=== PATIENT | female | born 2000 | race Two or more races ===

== ENCOUNTER 2024-05-13 23:09 | Emergency (ER) | payer OTHER ==
[~2024-05-13] VITALS: Ht 162.6 cm; Wt 61.0 kg
[~2024-05-13 23:09] MED LIST: AMOX500C2 PO
--- NOTE | 2024-05-14 00:07 | DVH ---
CHEST RADIOGRAPH Indication: cough Technique: Frontal and lateral view of the chest was obtained Comparison: None FINDINGS: Lines and Tubes: None Lungs: Probable infiltrate noted posteriorly in the right lower lobe. Pleura: No effusion. No pneumothorax. Cardiomediastinal contours: Unremarkable Bones: Dextroscoliosis of the thoracic spine IMPRESSION: 1. Infiltrate and atelectasis posteriorly in the right lower lobe HS:Y
[2024-05-14] MEDS ORDERED: AZIT-185 PO (00:27)
[2024-05-14] MEDS ORDERED: CEFD300C2 PO (00:27)
--- NOTE | 2024-05-14 00:27 | ED.PDOC ---
History of Present Illness HPI Comments 23F previously healthy presents with one week of fevers, chills, cough, congestion, and 2 days of nausea and diarrhea. Patient reports she took tylenol but has had no relief. Chief Complaint: Flu like Time Seen by MD: 23:34 Allergies: Coded Allergies: NO KNOWN ALLERGIES (Unverified , 12/21/23) Home Meds Active Scripts Amoxicillin Trihydrate (Amoxicillin) 500 Mg Cap, 1 CAP PO BID for 10 Days, #20 CAP Prov:VELMA BUTCHER PAC 12/21/23 Information Source: Patient Mode of Arrival: Ambulatory Past Medical History PAST MEDICAL HISTORY: Denies Surgical History: Denies all surgeries Family History Family History: Reviewed,noncontributory to illness Social History Smoker: Non-Smoker Alcohol: Denies ETOH Use Drugs: Denies Drug Use Constitutional: reports: fatigue, fever EENTM: denies: blurred vision, double vision, ear bleeding, ear discharge, ear drainage, ear pain, ear ringing, eye pain, eye redness, hearing loss, mouth pain, mouth swelling, nasal discharge, nose bleeding, nose congestion, nose pain, photophobia, tearing, throat pain, throat swelling, voice changes, others Respiratory: reports: cough Cardiovascular: denies: chest pain, dizzy spells, diaphoresis, Dyspnea on exertion, edema, irregular heart beat, left arm pain, lightheadedness, palpitations, PND, syncope, others Gastrointestinal: reports: diarrhea Genitourinary: denies: abnormal vagina bleeding, burning, dyspareunia, dysuria, flank pain, frequency, hematuria, incontinence, pain, , vagina discharge, urgency, others Neurological: denies: dizziness, fainting, headache, left sided numbness, left sided weakness, numbness, paresthesia, pre-existing deficit, right sided numbness, right sided weakness, seizure, speech problems, tingling, tremors, weakness, others Musculoskeletal: denies: back pain, gout, joint pain, joint swelling, muscle pain, muscle stiffness, neck pain, others Integumetry: denies: bruises, change in color, change in hair/nails, dryness, laceration, lesions, lumps, rash, wounds, others Allergic/Immunocompromised: denies: Difficulty Healing, Frequent Infections, Hives, Itching, others Hematologic/Lymphatic: denies: anemia, blood clots, easy bleeding, easy bruising, swollen glands, others Endocrine: denies: excessive hunger, excessive sweating, excessive thirst, excessive urination, flushing, intolerance to cold, intolerance to heat, unexplained weight gain, unexplained weight loss, others Psychiatric: denies: anxiety, bipolar disorder, depression, hopeless, panic disorder, schizophrenia, sleepless, suicidal, others Physical Exam General Appearance: Normal HEENT: Normal ENT Inspection, Pharynx Normal Neck: Full Range of Motion, Non-Tender, Normal, Normal Inspection Respiratory: Other (Cough) Cardiovascular: No Edema, No JVD, No Murmur, No Gallop, Normal Peripheral Pulses, Regular Rate/Rhythm Breast Exam: Deferred Gastrointestinal: No Organomegaly, Non Tender, No Pulsatile Mass, Normal Bowel Sounds, Soft Genitalia: Deferred Pelvic: Deferred Rectal: Deferred Extremities: No calf tenderness, Normal capillary refill, Normal inspection, Normal range of motion, Non-tender, No pedal edema Neurologic: Alert, freight brake operator II-XII nml as Tested, No Motor Deficits, Normal Affect, Normal Mood, No Sensory Deficits Cerebellar Function: NOT DONE Reflexes: NOT DONE Skin: Dry, Normal Color, Warm Lymphatic: No Adenopathy Was a procedure done? Was a procedure done?: No Differential Dx Considerations may include: viral syndrome, pneumonia, X-Ray, Labs, Meds, VS Vital Signs Date Time Temp Pulse Resp B/P (MAP) Pulse Ox O2 Delivery O2 Flow Rate FiO2 05/13/24 23:38 97.5 81 18 128/80 (96) 98 Time of 1ST Reevaluation: 00:25 Reevaluation 1ST: Unchanged Patient Education/Counseling: Diagnosis, Treatment Family Education/Counseling: No Family Present Departure 1 Departure Time of Disposition: 00:26 (Patine with a RLL pneumonia but with normal vitals and otherwise doing ok. Will discharge with outpatient antibiotics and follow up. ) Impression: Primary Impression: RLL pneumonia Qualified Codes: J18.9 - Pneumonia, unspecified organism Additional Impression: Diarrhea Qualified Codes: R19.7 - Diarrhea, unspecified Disposition: 01 HOME / SELF CARE / HOMELESS Condition: Stable Additional Instructions: You have a pneumonia. This is an infection in your lung. You were prescribed antibiotics. Please take as directed. If your symptoms worsen, or you have any other concerns then please return to the ER. e-Prescriptions Azithromycin (ZITHROMAX TABLET) 250 Mg Tb 250 MG PO DAILY for 4 Days, #4 TAB Prov: NIKO MORTON MD 05/14/24 Cefdinir (Cefdinir) 300 Mg Cap 1 CAP PO BID for 7 Days, #14 CAP Prov: NIKO MORTON MD 05/14/24 Critical Care Note Critical Care Time?: No Stability Stability form required: No Heart Score Heart Score: Heart Score Response (Comments) Value History N/A 0 EKG N/A 0 Age N/A 0 Risk Factors N/A 0 Troponin N/A 0 Total 0 NIKO MORTON MD May 14, 2024 00:27
[2024-05-14] MEDS: cefTRIAXone W LIDOCAINE 1 GM IM IM ONE (01:16)
[2024-05-14 01:18] VITALS: BP 130/63; PULSE 87; RESP 18; TEMP 98.1; O2SAT 98
[2024-05-14] MEDS: cefTRIAXone SOD 1,000 MG VL IM ONE (01:30)
[2024-05-14] MEDS: KETOROLAC TROMETH 30 MG/ML 1ML VIAL IM ONE (01:30)
[2024-05-14] MEDS: ACETAMINOPHEN 325 MG TAB PO ONE (01:31)
[2024-05-14] MEDS: AZITHROMYCIN 250 MG TAB PO ONE (01:31)
[2024-05-14] MEDS: FAMOTIDINE 20 MG TAB PO ONE (01:31)
[2024-05-14] MEDS: ONDANSETRON ODT 4 MG TAB PO ONE (01:32)
== END 2024-05-14 01:55 | disposition home or self-care (01) ==
LOC: ER 23:09 → EDSEX 23:09 → ER 05-14 01:54
DX: R19.7 Diarrhea, unspecified (principal); J18.9 Pneumonia, unspecified organism
CPT/HCPCS: 71046; 96372; 99284; J0696; J1885; Q0162

== ENCOUNTER 2024-05-21 21:12 | Emergency (ER) | payer OTHER ==
[~2024-05-21 21:12] MED LIST changes: +AZIT-185 PO; +CEFD300C2 PO
[2024-05-22] MEDS ORDERED: PRED20TA2 PO (05:15)
[2024-05-22] MEDS ORDERED: ALBUAER3 IN (05:15)
== END 2024-05-21 21:35 | disposition left against medical advice (07) ==
LOC: ER 21:12
DX: R06.02 Shortness of breath (principal); Z53.21 Procedure and treatment not carried out due to patient leaving prior to being seen by health care provider

== ENCOUNTER 2024-05-22 01:35 | Emergency (ER) | payer OTHER ==
[~2024-05-22] VITALS: Ht 162.6 cm; Wt 61.6 kg
--- NOTE | 2024-05-22 04:15 | ED.PDOC ---
SOB-HPI HPI Comments 23 YEAR OLD FEMALE PRESENTS TO ER WITH COMPLAINTS OF SHORTNESS OF BREATH X 1 DAY. PATIENT STATES SHE STARTED EXPERIENCING SHORTNESS OF BREATH AND MILD SUBSTERNAL CHEST TIGHTNESS YESTERDAY EVENING AFTER SHE FINISHED CLEANING HER BATHROOM WITH "A BUNCH OF CHEMICALS". STATES SHE WAS RECENTLY DISCHARGED FROM ER HERE 8 DAYS AGO AFTER BEING DIAGNOSED WITH PNEUMONIA AND FINISHED TAKING HER AZITHROMYCIN AND CEFDINIR ANTIBIOTICS WITH SIGNIFICANT IMPROVEMENT BUT STATES SHE ONLY NOTICED WORSENING SYMPTOMS OF SHORTNESS OF BREATH AND SUBSTERNAL CHEST TIGHTNESS AFTER CLEANING HER BATHROOM. DENIES ANY CURRENT PAIN. PATIENT PRESENTS TO ER AMBULATORY ON ARRIVAL, WITH STEADY GAIT, IN NO DISTRESS WITH VITALS STABLE. DENIES FEVER, DIFFICULTY SWALLOWING, SORE THROAT, N/V, HEADACHE, DIZZINESS, SKIN CHANGES, HEMOPTYSIS, PALPITATIONS, ABDOMINAL PAIN OR ANY FURTHER SYMPTOMS/COMPLAINTS Chief Complaint: Shortness of Breath Time Seen by MD: 02:17 Primary Care Provider: UNKNOWN Reviewed notes: Nurses Notes, Medications, Allergies Information Source: Patient Mode of Arrival: Ambulatory Past Medical History Past Medical History (Other): PNEUMONIA Surgical History: Denies all surgeries MACHINE TAILER History: No Pertinent MACHINE TAILER History Family History Family History: Unknown Social History Smoker: Non-Smoker Alcohol: Denies ETOH Use Drugs: Denies Drug Use Lives In: Home Constitutional: denies: chills, diaphoresis, fatigue, fever, malaise, sweats, weakness, others EENTM: denies: blurred vision, double vision, ear bleeding, ear discharge, ear drainage, ear pain, ear ringing, eye pain, eye redness, hearing loss, mouth pain, mouth swelling, nasal discharge, nose bleeding, nose congestion, nose pain, photophobia, tearing, throat pain, throat swelling, voice changes, others Respiratory: reports: others ( STATED IN HPI) Cardiovascular: reports: others ( STATED IN HPI) Gastrointestinal: denies: abdomen distended, abdominal pain, blood streaked bowels, constipated, diarrhea, dysphagia, difficulty swallowing, hematemesis, melena, nausea, poor appetite, poor fluid intake, rectal bleeding, rectal pain, vomiting, others Genitourinary: denies: abnormal vagina bleeding, burning, dyspareunia, dysuria, flank pain, frequency, hematuria, incontinence, pain, , vagina discharge, urgency, others Neurological: denies: dizziness, fainting, headache, left sided numbness, left sided weakness, numbness, paresthesia, pre-existing deficit, right sided numbness, right sided weakness, seizure, speech problems, tingling, tremors, weakness, others Musculoskeletal: denies: back pain, gout, joint pain, joint swelling, muscle pain, muscle stiffness, neck pain, others Integumetry: denies: bruises, change in color, change in hair/nails, dryness, laceration, lesions, lumps, rash, wounds, others Allergic/Immunocompromised: denies: Difficulty Healing, Frequent Infections, Hives, Itching, others Hematologic/Lymphatic: denies: anemia, blood clots, easy bleeding, easy bruising, swollen glands, others Endocrine: denies: excessive hunger, excessive sweating, excessive thirst, excessive urination, flushing, intolerance to cold, intolerance to heat, unexplained weight gain, unexplained weight loss, others Psychiatric: denies: anxiety, bipolar disorder, depression, hopeless, panic disorder, schizophrenia, sleepless, suicidal, others Physical Exam General Appearance: No Apparent Distress HEENT: Normal ENT Inspection, PERRL/EOMI, Pharynx Normal, TMs Normal Neck: Full Range of Motion, Non-Tender, Normal Respiratory: Chest Non-Tender, Lungs Clear, No Accessory Muscle Use, No Respiratory Distress, Normal Breath Sounds Cardiovascular: No Murmur, No Gallop, Regular Rate/Rhythm Breast Exam: Deferred Gastrointestinal: Non Tender, No Pulsatile Mass, Soft Genitalia: Deferred Pelvic: Deferred Rectal: Deferred Extremities: Normal capillary refill, Normal range of motion Neurologic: Alert, management analyst II-XII nml as Tested, No Motor Deficits, Normal Affect, Normal Mood, No Sensory Deficits Cerebellar Function: Normal Reflexes: Normal Skin: Dry, Normal Color, Warm Peripheral Pulses: 2+ Radial (R), 2+ Radial (L), 2+ Brachial (R), 2+ Brachial (L) Lymphatic: No Adenopathy Was a procedure done? Was a procedure done?: No Sedation Sedation?: No Differential Dx Differential Diagnosis: Pneumonia, Respiratory Distress, Sinusitis X-Ray, Labs, Meds, VS Vital Signs Date Time Temp Pulse Resp B/P (MAP) Pulse Ox O2 Delivery O2 Flow Rate FiO2 05/22/24 01:55 97.9 74 16 114/72 (86) 97 Current Medications Medications (Trade) Dose Ordered Sig/Alfonso Route Start Time Stop Time Status Last Admin Ceftriaxone Sodium (Rocephin) 1,000 mg ONCE ONCE IM 05/22/24 04:15 05/22/24 04:16 DC 05/22/24 04:41 Methylprednisolone Sodium Succinate (Solu Medrol) 125 mg ONCE ONCE IM 05/22/24 04:15 05/22/24 04:16 DC 05/22/24 04:40 PATIENT: TRACY STARKEY ACCT: [id number] UNIT: [id number] : 2000 LOC: ER ROOM / BED: / AGE / SEX: 23 / F ADM STATUS: REG ER SERVICE [id number] ORDERING PHYSICIAN: LUIS MIGUEL SAMSON PROCEDURE(s): CXR1 - CHEST XRAY 1 VIEW REASON: COUGH ORDER NUMBER(s): [id number], ACCESSION NUMBER(s): [id number] CHEST RADIOGRAPH Indication: COUGH Technique: Single frontal view of the chest was obtained Comparison: None FINDINGS: Lines and Tubes: None Lungs: No focal consolidation. Pleura: No effusion. No pneumothorax. Cardiomediastinal contours: Unremarkable Bones: No acute osseous abnormality. S shaped thoracic scoliosis. IMPRESSION: 1. No acute cardiopulmonary disease. ATED BY: HANS COX MD DICTATED DATE/TIME: 05/22/24506 SIGNED BY: HANS COX MD SIGNED DATE/TIME: 05/22/24506 CC: WAIVER SIGNED ROCEPHIN 1 G IM ORDERED SOLU-MEDROL 125 MG IM ORDERED PATIENT HAD IMPROVEMENT IN SYMPTOMS, DENIES ANY PAIN AND WAS IN NO DISTRESS PRIOR TO DISCHARGE ADVISED TO DRINK PLENTY OF FLUIDS PREVIOUS ER CHART REVIEWED AVOIDANCE OF CLEANING CHEMICALS DISCUSSED AND ADVISED UNTIL SYMPTOMS FULLY RESOLVE. IMPORTANCE OF PROPER SAFETY PRECAUTIONS WHILE USING CLEANING CHEMICALS WAS ALSO DISCUSSED AND ADVISED ADVISED TO FOLLOW UP WITH PCP IN 1-2 DAYS PATIENT VERBALIZED UNDERSTANDING AND AGREEABLE WITH CURRENT PLAN OF CARE ADVISED TO RETURN TO ER IMMEDIATELY IF SYMPTOMS WORSEN Images Reviewed?: Images reviewed and evaluated by me Time of 1ST Reevaluation: 04:12 Reevaluation 1ST: N/A Time of 2ND Reevaluation: 05:10 Reevaluation 2ND: Improved Patient Education/Counseling: Diagnosis, Treatment, Prognosis, Need For Follow Up Family Education/Counseling: No Family Present Departure 1 Departure Time of Disposition: 05:12 Impression: Primary Impression: Bronchospasm Disposition: HOME / SELF CARE / HOMELESS Condition: Stable e-Prescriptions Albuterol Sulfate (VENTOLIN MDI) 90 Mcg Ih 2 PUFF IN Q6HPRN, #1 INH 0 Refills Prov: LUIS MIGUEL SAMSON 05/22/24 Prednisone (Prednisone) 20 Mg Tab 20 MG PO BID for 5 Days, #10 TAB 0 Refills Prov: LUIS MIGUEL SAMSON 05/22/24 Discharged With: Self Critical Care Note Critical Care Time?: No Stability Stability form required: No Heart Score Heart Score: Heart Score Response (Comments) Value History N/A 0 EKG N/A 0 Age N/A 0 Risk Factors N/A 0 Troponin N/A 0 Total 0 LUIS MIGUEL SAMSON May 22, 2024 04:15
[2024-05-22] MEDS: methylPREDNISolone SOD SUCC 125 MG/2 ML VL IM ONE (04:40)
[2024-05-22] MEDS: cefTRIAXone SOD 1,000 MG VL IM ONE (04:41)
--- NOTE | 2024-05-22 05:10 | DVH ---
CHEST RADIOGRAPH Indication: COUGH Technique: Single frontal view of the chest was obtained Comparison: None FINDINGS: Lines and Tubes: None Lungs: No focal consolidation. Pleura: No effusion. No pneumothorax. Cardiomediastinal contours: Unremarkable Bones: No acute osseous abnormality. S shaped thoracic scoliosis. IMPRESSION: 1. No acute cardiopulmonary disease.
[2024-05-22] MEDS ORDERED: ALBUAER3 IN (05:15)
[2024-05-22] MEDS ORDERED: PRED20TA2 PO (05:15)
[2024-05-22 05:41] VITALS: BP 114/72; TEMP 97.9
[2024-05-22 05:42] VITALS: PULSE 74; RESP 18; O2SAT 97
== END 2024-05-22 05:40 | disposition home or self-care (01) ==
LOC: ER 01:35
DX: J98.01 Acute bronchospasm (principal); R07.89 Other chest pain
CPT/HCPCS: 71045; 96372; 99284; J0696; J2919